=== PATIENT | male | born 1970 ===

== ENCOUNTER 2018-12-21 16:29 | Emergency (ER) | payer OTHER ==
[~2018-12-21] VITALS: Ht 175.3 cm; Wt 84.4 kg
[~2018-12-21 16:29] MED LIST: CEPHALEXIN500 MG
== END 2018-12-21 18:00 | disposition home or self-care (01) ==
LOC: ER 16:29
DX: F41.8 Other specified anxiety disorders (principal); I10 Essential (primary) hypertension; R42 Dizziness and giddiness

== ENCOUNTER 2024-01-26 19:34 | Emergency (ER) | payer OTHER ==
[~2024-01-26] VITALS: Ht 177.8 cm; Wt 84.4 kg
[2024-01-26 19:59] VITALS: BP 119/84; O2SAT 99
== END 2024-01-26 20:50 | disposition home or self-care (01) ==
LOC: ER 19:34
DX: G47.30 Sleep apnea, unspecified (principal); Z88.6 Allergy status to analgesic agent